=== PATIENT | female | born 1985 ===

== ENCOUNTER 2018-09-02 14:19 | Emergency (ER) | payer OTHER ==
[2018-09-02 15:01] VITALS: BP 106/64
[2018-09-02 15:45] LABS: Influenza A Molecular NEGATIVE (Negative); Influenza B Molecular NEGATIVE (Negative)
--- NOTE | 2018-09-02 16:41 | UC ---
Respiratory Complaint HPI - HPI Summary HPI Summary: 5 DAYS OF FATIGUE, BODY ACHES, MALAISE. YESTERDAY DEVELOPED COUGH, CHILLS AND PLEURITIC PAIN. NO FEVER. NO N/V. - History of Current Complaint Chief Complaint: UCGeneralIllness Stated Complaint: FLU LIKE SYMP Time Seen by Provider: 09/02/18 15:15 Hx Obtained From: Patient Hx Last Menstrual Period: yesterday Onset/Duration: Gradual Onset, Lasting Days, Still Present Timing: Constant Severity Initially: Moderate Severity Currently: Moderate Pain Intensity: 5 Pain Scale Used: 0-10 Numeric Character: Cough: Nonproductive Aggravating Factors: Nothing Alleviating Factors: Nothing Associated Signs And Symptoms: Positive: Chills, URI, Nasal Congestion. Negative: Dyspnea, Fever - Allergies/Home Medications Allergies/Adverse Reactions: Allergies Allergy/AdvReac Type Severity Reaction Status Date / Time No Known Allergies Allergy Verified 09/02/18 15:01 Home Medications: Home Medications Ascorbic Acid TAB* [Vitamin C TAB*] 500 mg PO DAILY 09/02/18 [History Confirmed 09/02/18] Iron 18 mg PO DAILY 09/02/18 [History Confirmed 09/02/18] Multivitamin [Multivitamins] 1 cap PO DAILY 09/02/18 [History Confirmed 09/02/18 ] PMH/Surg Hx/FS Hx/Imm Hx - Additional Past Medical History Additional PMH: PROLACTINOMA - Surgical History Surgical History: Yes Surgery Procedure, Year, and Place: appendectomy - Social History Alcohol Use: None Substance Use Type: None Smoking Status (MU): Never Smoked Tobacco Review of Systems All Other Systems Reviewed And Are Negative: Yes Constitutional: Positive: Chills, Fatigue ENT: Positive: Nasal Discharge Respiratory: Positive: Cough Cardiovascular: Positive: Negative Gastrointestinal: Positive: Negative Musculoskeletal: Positive: Myalgia Neurological: Positive: Headache Physical Exam Triage Information Reviewed: Yes Appearance: No Pain Distress, Well-Nourished, Ill-Appearing - MILDLY Vital Signs: Initial Vital Signs Temp 99.1 F 09/02/18 14:57 Pulse 85 09/02/18 14:57 Resp 14 09/02/18 14:57 BP 106/64 09/02/18 14:57 Pulse Ox 100 09/02/18 14:57 Laboratory Tests 09/02/18 15:33 Influenza A (Rapid) Negative Influenza B (Rapid) Negative Vital Signs Reviewed: Yes Eyes: Positive: Conjunctiva Clear ENT: Positive: Hearing grossly normal, Pharynx normal, TMs normal Neck: Positive: Supple, Nontender, No Lymphadenopathy Respiratory Exam: Normal Cardiovascular Exam: Normal Abdomen Description: Positive: Soft Musculoskeletal: Positive: No Edema Neurological: Positive: Alert Psychological: Positive: Age Appropriate Behavior Skin: Negative: Rashes Diagnostics - Radiology CXR Radiology Interpretation Completed By: Radiologist Summary of Radiographic Findings: SMALL LEFT UPPER LOBE INFILTRATE. Respiratory Course/Dx - Differential Dx/Diagnosis Provider Diagnosis: Left upper lobe pneumonia Discharge - Sign-Out/Discharge Documenting (check all that apply): Patient Departure All imaging exams completed and their final reports reviewed: Yes - Discharge Plan Condition: Stable Disposition: HOME Prescriptions: Doxycycline Monohydrate 1 cap PO BID #20 cap Patient Education Materials: Pneumonia (ED) Forms: *Work Release Referrals: Vero Raymond MD [Primary Care Provider] - If Needed Additional Instructions: SMALL LEFT UPPER LOBE INFILTRATE SEEN ON CHEST X-RAY TODAY. TAKE THE DOXYCYCLINE TWICE DAILY FOR THE FULL 10 DAYS. OTC MEDS NEEDED FOR FEVER, DISCOMFORT AND COUGH. GO TO THE ED WITHOUT FAIL IF YOU DEVELOP SHORTNESS OF BREATH, CHEST PAIN, NAUSEA, WORSENING FEVER OR ANY OTHER CONCERNING SYMPTOMS. FOLLOW-UP WITH YOUR PCP IN 4-6 WEEKS FOR A REPEAT CHEST X-RAY TO ENSURE THE PNEUMONIA HAS CLEARED. - Billing Disposition and Condition Condition: STABLE Disposition: Home
== END 2018-09-02 16:56 | disposition home or self-care (01) ==
LOC: UCEAST 14:19
DX: J18.9 Pneumonia, unspecified organism (principal)
CPT/HCPCS: 71046; 99212; G0463